=== PATIENT | female | born 1940 | race Caucasian/White ===

== ENCOUNTER 2017-04-03 18:43 | Observation (INO) | payer MEDICARE ==
--- NOTE | ~2017-04-03 | HP ---
History And Physical [address] [place]. [address] NAME: SANTIAGO KNIGHT : 40 STATUS : ADM Irene PAT#: [id number] AGE: 76 ADM/REG DATE : 04/03/17 MR#: [id number] REPORT SERV DATE: 04/04/17 DICTATED BY: DATE: REPORT STATUS : Draft TRANSCRIBED BY: MODL DATE: 04/04/17 DATE OF ADMISSION: 04/03/2017 SHEEP SORTER: Robert Alicea M.D. CHIEF COMPLAINT: Chest pain, right arm pain, and weakness. HISTORY OF PRESENT ILLNESS: This is a very pleasant 76-year-old white female who reports about a week ago, while cooking dinner, developing right upper extremity arm pain. The patient reports that the pain from her right upper extremity radiated to her back and her midchest causing chest pain, 5/10, with generalized weakness, lightheadedness, and diaphoresis for approximately 12 hours. The patient denies any nausea, vomiting, palpitations, or shortness of breath. The patient recently reported her chest pain event to her daughter and therefore came in for an evaluation. The patient does report to still have some mild generalized weakness; however, the rest of the symptoms have resolved and have not reoccurred since that event. The patient currently denies any chest pain or pressure, shortness of breath, nausea, vomiting, or abdominal pain. The patient denies any personal history of myocardial infarction, stroke, or PE. The patient denies any recent fever or chills. No palpitations. No syncopal episodes. Denies PND or orthopnea. PAST MEDICAL HISTORY: 1. Paroxysmal atrial fibrillation following right shoulder surgery. 2. DVT in the 70s. 3. Celiac disease. 4. Ulcerative colitis in 2016. 5. Crohn's. 6. Rheumatoid arthritis. 7. Hypertension. 8. Chronic shortness of breath x10 years. 9. Raynaud. 10.Fibromyalgia. 11.Anxiety disorder. 12.Temporal arteritis. 13.Migraine headaches. 14.Peptic ulcer disease. PAST SURGICAL HISTORY: 1. Left nephrectomy in 1965. The patient reports due to chronic infection. 2. Right shoulder replacement. 3. Rectal fistula repair. 4. Appendectomy. 5. Tonsillectomy. 6. Hysterectomy. 7. Bilateral tubal ligation. History And Physical [address] [place]. [address] NAME: SANTIAGO KNIGHT : 40 STATUS : ADM Irene PAT#: [id number] AGE: 76 ADM/REG DATE : 04/03/17 MR#: [id number] REPORT SERV DATE: 04/04/17 DICTATED BY: DATE: REPORT STATUS : Draft TRANSCRIBED BY: MODL DATE: 04/04/17 SOCIAL HISTORY: The patient is a former teacher. She is and has two children. She does not have an exercise regimen. She denies smoking. She denies alcohol use. She denies any illicit drug use. FAMILY HISTORY: She reports that her parents did not have any cardiac history. REVIEW OF SYSTEMS: A 14-point review of systems was performed, significant for HPI. No other contributory diagnoses are identified. ALLERGIES: 1. IRON INFUSION. REACTION: HYPOTENSIVE. 2. PROCHLORPERAZINE EDISYLATE. REACTION: DRAWING OF NECK. 3. SULFA. REACTION: NAUSEA AND VOMITING. 4. MORPHINE, FEELS WEIRD. 5. CODEINE. REACTION: NAUSEA AND VOMITING. 6. HYDROCODONE. REACTION: CONFUSION AND HYPERACTIVITY. 7. OXYCODONE. REACTION: CONFUSION AND HYPERACTIVITY. HOME MEDICATIONS: 1. Timolol 0.5% ophthalmic solution 1 drop ophthalmic every morning to both eyes. 2. Xanax 0.25 p.o. at bedtime. 3. Eliquis 5 mg p.o. twice a day. 4. Xalatan 0.005% ophthalmic 1 drop ophthalmic at bedtime both eyes. 5. Vitamin D 50,000 units p.o. every 7 days, taken on Sundays. 6. Synthroid 25 mcg p.o. every morning. 7. Wellbutrin XL 150 p.o. every morning. 8. Tramadol 50 mg p.o. at bedtime. 9. Tramadol 50-100 mg p.o. every 6 hours as needed p.r.n. pain. 10.Zofran 4 mg p.o. sublingual every 6 hours as needed for nausea and vomiting. 11.Protonix 40 mg p.o. every morning. 12.Amiodarone 100 mg p.o. every morning. 13.Neurontin 300 mg p.o. at bedtime. 14.Metamucil packet 1 packet p.o. at bedtime. 15.MiraLAX powder 17 g p.o. at bedtime. 16.Maxzide 25 one tablet p.o. every morning. PHYSICAL EXAMINATION: VITAL SIGNS: Blood pressure 106/55, heart rate 56, temperature 97.9, respirations 15, O2 sat 99% on room air. GENERAL: Cooperative, in no apparent distress. HEENT: Head normocephalic, anicteric. Normal EOM. PERRLA. No xanthelasma. Nares patent. Moist mucous membranes. NECK: Trachea midline. No thyromegaly, JVD or bruits. RESPIRATORY: Clear to auscultation bilaterally anterior and posterior. Respirations even and unlabored. No wheezes, rhonchi or crackles. History And Physical [address] [address] NAME: SANTIAGO KNIGHT : 40 STATUS : ADM Irene PAT#: [id number] AGE: 76 ADM/REG DATE : 04/03/17 MR#: [id number] REPORT SERV DATE: 04/04/17 DICTATED BY: DATE: REPORT STATUS : Draft TRANSCRIBED BY: MODL DATE: 04/04/17 CARDIOVASCULAR: Regular rate and rhythm. No murmur, rub or gallop appreciated. No chest wall tenderness to palpation. ABDOMEN: Soft, nontender, nondistended, normal bowel sounds auscultated throughout. No masses or organomegaly. EXTREMITIES: No peripheral edema. DP/PT and radial pulses palpable bilaterally. No clubbing or cyanosis. SKIN: Warm, dry and intact. Normal turgor. No pallor or cyanosis. NEURO/PSYCH: Alert, oriented x3 with no acute distress. Affect appropriate to current situation. IMAGING: EKG shows sinus pavithra at 52. Telemetry shows sinus pavithra at 47. Chest x-ray shows no acute cardiopulmonary process is radiographically evident. Lungs clear. Echo done on May 17, 2016, shows an EF of 60%. No significant valvular disease. LABORATORY DATA: Troponin x3 less than 0.02. Sodium 134, potassium 4.4, BUN 22, creatinine 1.84, GFR 30, glucose 83. Calcium 8.4, magnesium 2.6. White blood cells 6.7, hemoglobin 13.0, hematocrit 40.4, platelets 332. INR 1.6. ASSESSMENT AND PLAN: 1. Atypical chest pain. Cardiac risk factors are hypertension and age. Troponins x3 have been negative less than 0.02. The patient denies any current chest pain. EKG only showed sinus pavithra at 50s. The patient has been observed in the CPOU to rule out myocardial infarction with serial enzymes and serial EKGs. She will be held n.p.o. for a plan of an MPI today. If the stress test shows no ischemia or low risk stress test, the patient is okay to be discharged home. If anything suggestive of ischemia, Cardiology referral will be initiated. The patient will be asked to follow up with her PCP in 1-2 weeks with all the studies being sent to that office. 2. Paroxysmal atrial fibrillation. The patient is currently in sinus rhythm. The patient takes amiodarone 100 mg p.o. daily. We will continue that as well as the patient's Eliquis at 5 mg p.o. twice a day. The patient denies any palpitations as well. 3. Hypertension. The patient's orthostatic blood pressures are: Lying, 106/55 with a heart rate of 52. Sitting, 85/59 with a heart rate of 55. Standing 91/55 with a heart rate of 61. Due to the patient's report of feeling weak and lightheaded, we will decrease the patient's Maxzide dose to half a tab daily. I have encouraged the patient to get some JOYCELYN hose and to decrease her salt intake. The patient reports when off Maxzide, she gets a moderate amount of edema to her bilateral lower extremities and therefore, that is why she takes Maxzide. She has stopped it for [address] Alicea's recommendation during the office visit. She reports that she had to go back on it again because of the swelling to her lower extremities. Therefore, instead of stopping, I will decrease it and I will try to schedule a followup appointment with the patient's PCP in one to two weeks to discuss her orthostatic blood pressures as well as a followup with Dr. Alicea to discuss future management or changes to her medications. History And Physical [address] [place]. [address] NAME: SANTIAGO KNIGHT : 40 STATUS : ADM Irene PAT#: [id number] AGE: 76 ADM/REG DATE : 04/03/17 MR#: [id number] REPORT SERV DATE: 04/04/17 DICTATED BY: DATE: REPORT STATUS : Draft TRANSCRIBED BY: MODL DATE: 04/04/17 EKS/MAGDIEL Trish Bolivar APN / [id number] CC: Lexi Delcid, MSN, [employer] Law Villanueva M.D.
[2017-04-03 18:00] LABS: BASOPHILS 0.6 %; BASOPHILS ABSOLUTE 0.04 10/3/uL (0.0-0.16); EOSINOPHILS 2.1 %; EOSINOPHILS ABSOLUTE 0.14 10/3/uL (0.0-0.53); ER CBC TAT 0 Hrs 09 Mins; HEMATOCRIT 40.4 % (36.0-48.0); IMMATURE GRANULOCYTES 0.3 %; IMMATURE GRANULOCYTES ABSOLUTE 0.02 10/3/uL (0.0-0.11); LYMPHOCYTES 22.8 %; LYMPHOCYTES ABSOLUTE 1.52 10/3/uL (0.67-4.30); MEAN CORPUS HGB CONC 32.2 g/dL (32.0-36.0); MEAN CORPUSCULAR HEMOGLOB 28.9 pg (26.0-34.0); MEAN CORPUSCULAR VOLUME 89.8 fL (80-100); MEAN PLATELET VOLUME 10.6 fL (9.2-13.0); MONOCYTES ABSOLUTE 0.47 10/3/uL (0.21-1.20); NEUTROPHILS 67.2 %; NEUTROPHILS ABSOLUTE 4.49 10/3/uL (2.02-8.40); PLATELET COUNT 332 10/3/uL (150-400); RBC DISTRIBUTION WIDTH 13.9 % (12.0-16.0); WHITE BLOOD CELLS 6.7 10/3/uL (4.5-10.5)
[2017-04-03 18:02] LABS: MANUAL DIFF NO %
[2017-04-03 18:16] LABS: INTERNATIONAL NORMAL RATI 1.6 UNITS (-); PROTIME (NOT ORD) 18.5 SEC (12.0-14.5)
[2017-04-03 18:17] LABS: PARTIAL THROMBO TIME 46.9 SEC (22.5-37.2)
[2017-04-03 18:20] LABS: BUN (BLOOD UREA NITROGEN) 22 MG/DL (6-23); CALCIUM, SERUM 8.4 MG/DL (8.5-10.4); CHEST PAIN PROFILE TAT 0 Hrs 29 Mins; CHLORIDE, SERUM 98 MMOL/L (96-112); CO2 (CARBON DIOXIDE) 27 MMOL/L (24-34); CREATININE 1.84 MG/DL (0.55-1.02); GFR AFRICAN AMERICAN 30 ML/MIN (>=60); GFR NON AFRICAN AMERICAN 26 ML/MIN (>=60); GLUCOSE, SERUM 83 MG/DL (60-99); POTASSIUM, SERUM 4.4 MMOL/L (3.5-5.3); SODIUM, SERUM 134 MMOL/L (135-148); TROPONIN I <0.02 NG/ML (<0.05)
[~2017-04-03 18:43] MED LIST: ALTERIL PO; AMB5 PO; ASA5GR PO; ASAB PO; ASTELIN NAS; AUG875 PO; B COMPLETE PO; BENTYL10 PO; BETIMOL0.5 % OPH; BISR PR; CALMOSEPTINE O2.5 OZ TOP; CALTRA600D PO; CIP5 PO; CORDARONE PO; CULTURELLE PROBIOTIC PO; DSS PO; ELIQUIS 5 MG TAB5 MG PO; ENDOCET1 TAB PO; EZFE 200200 MG PO; FENESIN IR400 MG PO; FIBERCON PO; FLONASE NAS; HARD NAILS OR; HYDROCHLOROT12.5 MG PO; HYT1 PO; KAOPECTATE262 MG/15 PO; KLOR-CON 1010 MEQ PO; KLOR-CON M2020 MEQ PO; L20 PO; LACT30UDL PO; LIBRAX PO; LIPITOR40 PO; MAALOX PO; MAX25 PO; METAMUCIL CAN7 OZ PO; MIRALAXPKT PO; MOMUD PO; NEUR100 PO; NORCO1 TA1 PO; NOVOLOG SC; POT GLUCONAT595 M1 OR; PR25 PO; PRILO PO; PRILOSEC40 MG PO; PROTONIX PO; PROVENTSOL INH; REG PO; REQUIP2 PO; REQUIP25 PO; ROBAFEN DM1 ML PO; T PO; TIMOLOL MAL0.5 % OP; TIMOLOL MAL0.5 % OPH; ULTRAM50 PO; VITAMIN D31000 UNIT PO; VITC500 PO; VITE PO; X25 PO; XALAT OPH; Z-PAK; ZESTORETIC1 TAB PO; ZESTRIL5 MG PO; ZOFRAN ODT4 MG PO; ZOFRANODT8 PO; ZOL50 PO
[2017-04-03] MEDS ORDERED: TIMOLOL MAL0.5 % OPH (20:01)
[2017-04-03] MEDS ORDERED: X25 PO (20:01)
[2017-04-03] MEDS ORDERED: ELIQUIS 5 MG TAB5 MG PO (20:01)
[2017-04-03] MEDS ORDERED: XALAT OPH (20:02)
[2017-04-03] MEDS ORDERED: VITD PO (20:02)
[2017-04-03] MEDS ORDERED: SYN.025B PO (20:02)
[2017-04-03] MEDS ORDERED: WELLXL150 PO (20:02)
[2017-04-03] MEDS ORDERED: ULTRAM50 PO ×2 (20:03)
[2017-04-03] MEDS ORDERED: ZOFRAN ODT4 MG PO/SL (20:04)
[2017-04-03] MEDS ORDERED: PROTONIX PO (20:05)
[2017-04-03] MEDS ORDERED: PACERONE100 MG PO (20:05)
[2017-04-03] MEDS ORDERED: METPAKSF PO (20:06)
[2017-04-03] MEDS ORDERED: NEUR300 PO (20:06)
[2017-04-03] MEDS ORDERED: MAX25 PO (20:07)
[2017-04-03] MEDS ORDERED: MIRALAX POWDER1 PKT PO (20:07)
== END 2017-04-04 17:26 | disposition home or self-care (01) ==
LOC: ER 18:43 → CDU1 19:30
PROVIDERS: Nurse Practitioner
DX: R07.89 Other chest pain (principal); I48.0 Paroxysmal atrial fibrillation; I10 Essential (primary) hypertension; Z79.01 Long term (current) use of anticoagulants; Z79.899 Other long term (current) drug therapy
CPT/HCPCS: 71020; 78452; 80048; 83735; 84484; 85025; 85610; 85730; 93005; 93017; 99285; A9270-GY; A9502; G0378; J0153